=== PATIENT | male | born 1975 | race Caucasian/White ===

== ENCOUNTER 2017-09-07 12:12 | Inpatient (IN) ==
[2017-09-07] MEDS ORDERED: *HR* HYDROmorphone (PF) 1 MG/ML SYRINGE IM ONE (15:27)
[2017-09-07] MEDS ORDERED: Tdap (ADACEL) Vaccine 0.5 ML IM ONE (15:31)
--- NOTE | 2017-09-07 15:31 | Emergency Department Note ---
Disposition Clinical Impression: Abscess of skin or subcutaneous tissue Qualifiers: Site of cutaneous abscess: extremity Site of cutaneous abscess of extremity: upper extremity Laterality: right Qualified Code(s): L02.413 - Cutaneous abscess of right upper limb Disposition: Admitted As Inpatient Condition: Undetermined Referrals: NONE,PCP [Primary Care Provider] - Forms: ED Satisfaction Letter Time of Disposition: 18:43 Skin/Abscess/FB HPI Chief complaint: ED Skin/Abscess/Foreign Body Stated complaint: Right arm cellulitis Time Seen by Provider: 09/07/17 15:09 Source: patient Mode of arrival: ambulatory Limitations: no limitations Nursing Notes Reviewed: Yes Vital Signs Reviewed: Yes HPI Narrative: 42-year-old male with previous history of IV drug abuse that has not used an roughly 1 year arrives to [facility] emergency department complaining of erythema, swelling and pain of the right elbow with flexion/ extension. The patient states started 2 days ago as a small erythematous region is progressively worsening. The patient admits to chills, nausea, weakness. The patient denies any current IV drug abuse. The patient denies any previous history of abscess or cellulitis. Denies any other complaints at this time. Pt Subjective Complaint: insect bite/sting, abscess/boil Onset (ago): day(s) (2) Tetanus Up to Date: no Location: RUE Severity: moderate, severe Severity scale (1-10): 9 Quality: stabbing, aching Consistency: constant, Worsening Improves with: none Worsens with: none Context: none Associated symptoms: Reports: chills, myalgias Treatments prior to arrival: none Allergies Allergy/AdvReac Type Severity Reaction Status Date / Time No Known Allergies Allergy Verified 09/07/17 12:25 All systems ED: reviewed and negative except as stated. Constitutional: Reports: chills. Denies: fever, weakness Cardiovascular: Denies: chest pain Respiratory: Denies: cough, dyspnea, wheezes Gastrointestinal: Reports: nausea. Denies: abdominal pain, vomiting Musculoskeletal: Denies: back pain Integumentary: Reports: lesions. Denies: rash Neurological: Denies: headache, weakness, numbness, vertigo Past Medical History - Past Medical History Attestation: Yes The following information was validated with the patient. Source: patient Medical history: Reports: no medical history Surgical history: Reports: non-contributory Psychiatric history: Reports: no psych history - Social History Smoking Status: Current every day smoker Smokeless Tobacco Status: No Alcohol use: Reports: occasionally Drug use: Reports: opiates (Previous Hx of), marijuana Physical Exam - General Limitations: no limitations General appearance: alert, in no apparent distress - Head Head exam: atraumatic, normocephalic, normal inspection - Eye Eye exam: Present: normal appearance, PERRL, EOMI - ENT ENT exam: normal exam, normal oropharynx, mucous membranes moist - Neck Neck exam: Present: normal inspection, full ROM, trachea midline - Chest Chest inspection: Present: normal inspection, symmetric chest wall rise - Respiratory Respiratory exam: Present: normal lung sounds bilaterally - Cardiovascular Cardiovascular exam: Present: regular rate, normal rhythm, normal heart sounds - Extremities Exam Extremities exam: Present: tenderness (With palpation of right elbow and pain with flexion and extension of right elbow.) - Skin Skin exam: Present: warm, other (Patient has erythema and swelling of right elbow on the anterior to medial aspect with tenderness to palpation.) Course - Consultations Consultation #1: Spoke with Dr. Lorenzana in radiology with regards to previous radiology attending read of CT of right upper extremity. There was question whether or not biceps muscle was involved. After speaking with Dr. Lorenzana he stated that it likely represents edema and that the abscess does not involve the bicep muscle. Time: 18:08 Consultation #2: We spoke with Dr. Espinosa surgery recommended admission to the hospitalist service. She will be consulted. Time: 18:12 Vital Signs Temperature 98.3 F 09/07/17 12:22 Pulse Rate 91 09/07/17 12:22 Respiratory Rate 18 09/07/17 12:22 Blood Pressure 134/78 09/07/17 12:22 O2 Sat by Pulse Oximetry 99 09/07/17 12:22 Temperature 98.3 F 09/07/17 12:22 Pulse Rate 93 09/07/17 17:53 Respiratory Rate 18 09/07/17 17:53 Blood Pressure 119/85 09/07/17 17:53 O2 Sat by Pulse Oximetry 100 09/07/17 17:53 Oxygen Delivery Oxygen Delivery Room Air Skin/Abscess/Foreign Body - MDM Narrative Medical decision making narrative: Patient has right antecubital abscess and cellulitis. The patient was began on vancomycin and cefazolin. CT scan reveals no involvement of the biceps but likely edema that is associated with it. We did a bedside ultrasound that revealed a large amount of vasculature in this region and did not feel comfortable with draining it here in the emergency Department. Given the patient's severity of symptoms and pain with flexion of the elbow, we will admit the patient to the hospitalist with surgery consulted. Patient made aware and agrees to plan. Accepted by Emilie. - Lab Data Lab results reviewed: Yes I reviewed the patient's lab results. Result diagrams: 09/07/17 15:37 09/07/17 15:37 Lab Results 09/07/17 09/07/17 Range/Units 15:37 15:37 WBC 10.9 (4.3-11.1) K/mcL RBC 4.68 (4.19-5.50) M/mcL Hgb 14.2 (12.9-16.9) g/dL Hct 42.9 (37.5-50.1) % MCV 91.7 (83.0-100.0) fL MCH 30.3 (28.0-33.3) pg MCHC 33.1 (31.6-35.5) g/dL RDW 14.3 (11.5-14.5) % Plt Count 267 (140-400) K/mcL MPV 10.1 (9.4-12.4) fL Immature Gran % 0.5 (0-4) % Seg Neutrophils % 76.7 % Lymphocytes % 9.5 % Monocytes % 11.8 % Eosinophils % 1.1 % Basophils % 0.4 % Neutrophils # 8.4 (1.6-8.9) K/mcL Lymphocytes # 1.0 (0.6-4.6) K/mcL Monocytes # 1.3 (0.0-1.3) K/mcL Eosinophils # 0.1 (0.0-0.6) K/mcL Basophils # 0.0 (0.0-0.2) K/mcL Sodium 137 (136-145) mEq/L Potassium 3.4 L (3.5-4.5) mEq/L Chloride 103 (98-109) mEq/L Carbon Dioxide 28 (19-29) mEq/L BUN 11 (8-26) mg/dL Creatinine 0.98 (0.72-1.25) mg/dL Est GFR ( Amer) > 60 (> 60) Est GFR (Non-Af Amer) > 60 (> 60) BUN/Creatinine Ratio 11 (6-26) Glucose 100 H (70-99) mg/dL Calculated Osmolality 283 (280-300) Calcium 9.0 (8.6-10.8) mg/dL - Radiology Data Radiology results reviewed: Yes I reviewed the patient's radiology results. Attestation Statement - Attestation Attestation: I, Stephan Sandoval DO, examined this patient [id number] and my medical decision-making was reviewed with Dr. Anjum Gu, Resident Physician. I agree with the documented findings, disposition and treatment plan as described except to the extent set forth below. Please see my progress notes for details. . 42-year-old male presents emergency room with right upper extremity cellulitis over the before meals of the right elbow. Patient has a history of IV drug abuse but denies any use in greater than a year. There is concerning for some abscess formation as well as cellulitis. Patient is pain with movement of the elbow including flexion and extension. Otherwise she has normal neuromotor function extremity with good pulses. He has full range of motion of the fingers in flexion extension as well as wrist. Elbow is limited range of motion secondary to swelling and irritation shoulder is not affected at this time. Patient has had intermittent chills but denies any fevers nausea vomiting or diarrhea. Patient denies chest pain shortness of breath headache or vision change. Main concern on presentation here is poorly controlled as well as progressive cellulitis with abscesses formation. No physical signs of crepitus or deformity to the extremity. No signs of skin deterioration or necrosis His overlying vascular and tendon areas of the extremity. Patient will be evaluated with labs and CT imaging of the upper extremity. Patient will be provided with antibiotics as deemed appropriate. Otherwise patient is resting comfortable in the bed. See detailed documentation of physical exam, medical intervention, medical decision-making and disposition and resident physician's note.
[2017-09-07 15:52] LABS: Basophils % 0.4 %; Eosinophils # 0.1 K/mcL (0.0-0.6); Eosinophils % 1.1 %; Hematocrit 42.9 % (37.5-50.1); Hemoglobin 14.2 g/dL (12.9-16.9); Immature Granulocytes % 0.5 % (0-4); Lymphocytes % 9.5 %; Mean Corpuscular HGB Conc 33.1 g/dL (31.6-35.5); Mean Corpuscular Hemoglobin 30.3 pg (28.0-33.3); Mean Corpuscular Volume 91.7 fL (83.0-100.0); Mean Platelet Volume 10.1 fL (9.4-12.4); Monocytes # 1.3 K/mcL (0.0-1.3); Monocytes % 11.8 %; Neutrophils # 8.4 K/mcL (1.6-8.9); Platelet Count 267 K/mcL (140-400); Red Blood Count 4.68 M/mcL (4.19-5.50); Red Cell Distribution Width 14.3 % (11.5-14.5); Segmented Neutrophils % 76.7 %
[2017-09-07 16:01] LABS: BUN/Creatinine Ratio 11 (6-26); Blood Urea Nitrogen 11 mg/dL (8-26); Carbon Dioxide 28 mEq/L (19-29); Chloride 103 mEq/L (98-109); Glucose 100 mg/dL (70-99); Osmolality,Calculated 283 (280-300); Potassium 3.4 mEq/L (3.5-4.5); Sodium 137 mEq/L (136-145); eGFR For African Americans > 60 (> 60); eGFR For Non-African Americans > 60 (> 60)
[2017-09-07] MEDS ORDERED: Vancomycin 1,000 MG in D5% in Water 250 ML IVPB ONE (17:08)
[2017-09-07] MEDS ORDERED: ceFAZolin 2,000 MG in D5% in Water 100 ML IVPB ONE (17:28)
[2017-09-07] MEDS ORDERED: *HR* HYDROmorphone 2 MG/ML SYRINGE IVP ONE (17:43)
[2017-09-07] MEDS ORDERED: Naloxone 0.4 MG/ML INJ IVP PRN (19:50)
[2017-09-07] MEDS ORDERED: Acetaminophen 325 MG TABLET PO PRN (19:50)
[2017-09-07] MEDS ORDERED: *HR* HYDROcodone/Acet 5/325 mg TABLET PO PRN (19:50)
[2017-09-07] MEDS ORDERED: Ondansetron 4 MG/2 ML VIAL IVP PRN (19:50)
[2017-09-07] MEDS ORDERED: Vancomycin 1,500 MG in D5% in Water 250 ML IVPB SCH (20:00)
[2017-09-07] MEDS: *HR* HYDROmorphone (PF) 1 MG/ML SYRINGE IVP PRN (22:22)
[2017-09-08] MEDS: Piperacillin/Tazobactam 3.375 GM in D5% in Water (Mini-Bag+) 100 ML IVPB SCH ×3 (00:20→17:37)
[2017-09-08] MEDS: 0.9 % Sodium Chloride 1,000 ML IVC SCH ×2 (00:20→22:39)
--- NOTE | 2017-09-08 00:46 | Internal Med History&Physical ---
Date of Encounter: 09/07/17 Time of Encounter: 22:43 Assessment and Plan (1) Abscess of right upper extremity Current visit: Yes Status: Acute Right upper extremity examined. Pus collection at antecubital fossa seen on CAT scan. General surgeon contacted by ER with see the patient tomorrow and I suspect patient might need I&D. IV vancomycin and Zosyn started. Repeat CBC CMP. IV fluid added (2) Intravenous drug abuse in remission Current visit: Yes Status: Acute Patient has not used IV line in the last 6 months however he uses occasional marijuana (3) Hypokalemia Current visit: Yes Status: Acute Potassium supplemented recheck in the morning Internal Medicine - H&P: HPI Chief complaint: Right upper extremity swelling pain and redness Admitted From: Home Plans for Post Hospital Care: Home History of present illness: Mr. Kraus is a 42 year old male past medical history significant for IV drug abuse presented with 2 day history of right upper extremity pain swelling redness which is worsening. A CT right upper extremity showed pus collection in right antecubital fossa involving the biceps muscle tendon and the surrounding erythema and swelling extending into her arm and forearm. General surgery was consulted who has advised the patient to be admitted to internal medicine and will see the patient is a consult. Consult has been placed. Patient is a started on IV vancomycin and Zosyn. He is in quite a bit of pain there for IV Dilaudid as started beside IV fluid. He denies use of any recent IV drugs. No chest pain or shortness of breath palpitations and headache fever chills dizziness abdominal pain nausea vomiting diarrhea numbness of fingers or any other discomfort otherwise Past Med Surg Social Fam HX - Past Medical History Medical history: no medical history Psychiatric history: no psych history - Past Surgical History Surgical History: non-contributory - Social History Smoking Status: Current every day smoker Packs per day: 0.5 Smokeless Tobacco Status: No Alcohol use: occasionally Drug use: opiates (Previous Hx of), marijuana - Family History Grandmother Living Status: Hx Family Cancer: Yes (Lung CA.) Internal Medicine - H&P: Meds Aspirin/Acetaminophen/Caffeine [Excedrin Migraine Caplet] 1 each PO Q6H PRN 10/14 [History] 3 Allergy/AdvReac Type Severity Reaction Status Date / Time No Known Allergies Allergy Verified 09/07/17 12:25 All Systems PM: A 10-system review of systems was performed and is negative for pertinent findings except as documented above in the HPI. - Constitutional Constitutional: no chills, no fever(s), no night sweats - EENT Eyes: no change in vision, no discharge, no pain, no photophobia Ears: no ear discharge, no ear pain, no tinnitus Nose, mouth and throat: no dysphagia, no nasal discharge, no neck pain, no sore throat - Cardiovascular Cardiovascular ROS IM: no chest pain, no diaphoresis, no dyspnea, no lightheadedness, no palpitations, no syncope - Respiratory Respiratory: no cough, no dyspnea, no wheezing, no excessive phlegm production - Gastrointestinal Gastrointestinal: no abdominal pain, no diarrhea, no hematemesis, no hematochezia, no melena, no nausea, no vomiting - Musculoskeletal Musculoskeletal ROS IM: joint swelling, limited range of motion, stiffness, no numbness, no tingling - Integumentary Integumentary IM: erythema, no rash, no unusual bruising - Neurological Neurological ROS: no confusion, no convulsions, no focal weakness, no numbness, no tingling, no tremor(s) - Hematologic/Lymphatic Hematologic/Lymphatic: no easy bruising - Constitutional Vitals: Temp Pulse Resp BP Pulse Ox 98.9 F 96 15 121/77 100 09/07/17 20:54 09/07/17 20:54 09/07/17 20:54 09/07/17 20:54 09/07/17 20:54 - Head Head exam: Present: atraumatic, normocephalic - Eye Eye exam: Present: PERRL, conjuntiva pink, sclera anicteric Pupils: Present: PERRL - Neck Neck exam general surgery: Present: supple, trachea midline. Absent: lymphadenopathy - Respiratory Respiratory exam: Present: CTAB. Absent: accessory muscle use, rales, rhonchi, wheezes - Cardiovascular Cardiovascular exam: Present: RRR, +S1, +S2. Absent: diastolic murmur, gallop, rubs, systolic murmur - GI/Abdominal GI/Abdominal exam: Present: normal bowel sounds, soft, no peritoneal signs. Absent: distended, tenderness - Extremities Exam Extremities exam: Present: warm, radial pulses palpable and symmetrical. Absent : calf tenderness, cyanotic, pedal edema Additional comments: Right upper extremity including arm and forearm quite swollen. Large tattoo noticed which is old. Very tender to touch. Capillary refill 3 seconds but extremities still warm. Radial pulse palpable. Range of motion limited at the elbow due to pain shoulder and wrist had full range of motion. Neurovascular intact - Neurological Exam Neurological exam: Present: CN II-XII intact, oriented X3, no focal deficits. Absent: pronater drift, facial droop, speech deficit - Skin Skin exam: Present: dry, intact Internal Med - H&P Results - Labs CBC & Chem 7: 09/07/17 15:37 09/07/17 15:37
[2017-09-08] MEDS: *HR* HYDROmorphone (PF) 1 MG/ML SYRINGE IVP PRN ×3 (02:43→08:46)
[2017-09-08 04:39] LABS: Basophils # 0.1 K/mcL (0.0-0.2); Basophils % 0.4 %; Eosinophils # 0.1 K/mcL (0.0-0.6); Eosinophils % 0.8 %; Hematocrit 39.9 % (37.5-50.1); Hemoglobin 13.2 g/dL (12.9-16.9); Immature Granulocytes % 0.3 % (0-4); Lymphocytes # 1.5 K/mcL (0.6-4.6); Lymphocytes % 11.7 %; Mean Corpuscular HGB Conc 33.1 g/dL (31.6-35.5); Mean Corpuscular Hemoglobin 30.3 pg (28.0-33.3); Mean Corpuscular Volume 91.5 fL (83.0-100.0); Mean Platelet Volume 10.7 fL (9.4-12.4); Monocytes # 1.7 K/mcL (0.0-1.3); Monocytes % 13.4 %; Neutrophils # 9.5 K/mcL (1.6-8.9); Platelet Count 234 K/mcL (140-400); Red Blood Count 4.36 M/mcL (4.19-5.50); Red Cell Distribution Width 14.2 % (11.5-14.5); Segmented Neutrophils % 73.4 %
[2017-09-08 04:49] LABS: Alanine Aminotransferase 38 Units/L (0-55); Albumin 2.9 g/dL (3.5-5.0); Albumin/Globulin Ratio 0.9 (1.1-2.2); Alkaline Phosphatase 37 Units/L (38-126); Aspartate Amino Transferase 32 Units/L (5-34); BUN/Creatinine Ratio 8 (6-26); Bilirubin,Total 0.5 mg/dL (0.2-1.2); Blood Urea Nitrogen 9 mg/dL (8-26); C-Reactive Protein 62 mg/L (Less than 5); Calcium 8.6 mg/dL (8.6-10.8); Carbon Dioxide 26 mEq/L (19-29); Chloride 103 mEq/L (98-109); Globulin 3.3 g/dL (2.4-3.5); Glucose 100 mg/dL (70-99); Osmolality,Calculated 283 (280-300); Potassium 3.6 mEq/L (3.5-4.5); Sodium 137 mEq/L (136-145); Total Protein 6.2 g/dL (6.0-8.3); eGFR For African Americans > 60 (> 60); eGFR For Non-African Americans > 60 (> 60)
[2017-09-08] MEDS ORDERED: Lidocaine 1% 20 ML MDV ID ONE (05:15)
[2017-09-08] MEDS: Vancomycin 1,500 MG in D5% in Water 250 ML IVPB SCH ×2 (05:19→17:39)
[2017-09-08] MEDS ORDERED: 0.9 % Sodium Chloride 500 ML IVC ONE (05:57)
[2017-09-08] MEDS ORDERED: 0.9 % Sodium Chloride 500 ML ONE (05:59)
--- NOTE | 2017-09-08 06:04 | General Surgery Consult Note ---
Date of Encounter: 09/08/17 Time of Encounter: 05:00 Assessment and Plan (1) Leukocytosis Current Visit: Yes Status: Acute continue abx cultures obtained trend wbc Qualifiers: Leukocytosis type: unspecified Qualified Code(s): D72.829 - Elevated white blood cell count, unspecified (2) Abscess of right upper extremity Current Visit: Yes Status: Acute discussed with patient I/D of RUE abscess, consent obtained, I/D performed without incident will repeat CT scan RUE since patient has significantly more swelling continue Abx continue prn pain control started ofirmev ice packs to RUE ok (3) History of drug abuse in remission Current Visit: Yes Status: Acute History of Present Illness Consult date: 09/08/17 History of present illness: Patient is a 42 yo male who presents to hospital with a right antecubital fossa abscess. He states he was putting on a shirt Tuesday (4 days ago) when he felt a prick sensation to right arm. No obvious injury. Over the next 2-3 days his arm began and continued to swell which prompted him to present to the ED. He complains of night sweats last night and increased swelling of the right arm. He states it is tight and has decreased ROM at elbow. He had a ct which showed a right antecubital fossa abscess. WBC 10.9 on admission. Patient started on vanco/zosyn per hospitalist. 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 After several OD episodes patient became clean although he states he did have a few relapses. He has been clean for 1-1.5 years. Past Med Surg Social Fam HX - Past Medical History Source: patient Medical history: no medical history, other (history of snorting heroine/clean) Psychiatric history: no psych history - Past Surgical History Surgical History: other (tonsillectomy) - Social History Smoking Status: Current every day smoker Packs per day: 0.5 Smokeless Tobacco Status: No Alcohol use: occasionally Drug use: opiates (Previous Hx of), marijuana, other (snorted heroine) - Family History Grandmother Living Status: Hx Family Cancer: Yes (Lung CA.) Medications and Allergies Aspirin/Acetaminophen/Caffeine [Excedrin Migraine Caplet] 1 each PO Q6H PRN 10/14 [History] 3 Allergy/AdvReac Type Severity Reaction Status Date / Time No Known Allergies Allergy Verified 09/07/17 12:25 Review of Systems All systems PM: reviewed and no additional remarkable complaints except as stated All systems PM: A 10-system review of systems was performed and is negative for pertinent findings except as documented above in the HPI. General Surgery Exam Initial Vital Signs Temp Pulse Resp BP Pulse Ox 98.3 F 91 18 134/78 99 09/07/17 12:22 09/07/17 12:22 09/07/17 12:22 09/07/17 12:22 09/07/17 12:22 - General physical appearance well developed, well nourished, moderate pain - Eyes PERRL, normal ocular movement - ENT normal mucosa, normocephalic - Neck trachea midline - Respiratory normal expansion - Cardiovascular Cardiovascular exam: Present: RRR - Integumentary Integumentary general surgery: Present: other (right upper and forearm edematous , firm, tender, erythematous, at antecubital fossa is a blister, arm is very tender, no subcutaenous emphysema felt) - Neurologic Present: CN 2-12 grossly intact - Musculoskeletal Present: other (decreased ROM right elbow due to swelling/pain) - Psychiatric Psychiatric general surgery: Present: A&Ox3, speech is normal Exam Initial Vital Signs Temp Pulse Resp BP Pulse Ox 98.3 F 91 18 134/78 99 09/07/17 12:22 09/07/17 12:22 09/07/17 12:22 09/07/17 12:22 09/07/17 12:22 Results - Labs 09/08/17 03:56 09/08/17 03:56 Abnormal lab results WBC 13.0 K/mcL (4.3-11.1) H 09/08/17 03:56 Neutrophils # 9.5 K/mcL (1.6-8.9) H 09/08/17 03:56 Monocytes # 1.7 K/mcL (0.0-1.3) H 09/08/17 03:56 Glucose 100 mg/dL (70-99) H 09/08/17 03:56 Alkaline Phosphatase 37 Units/L (38-126) L 09/08/17 03:56 C-Reactive Protein 62 mg/L (Less than 5) H 09/08/17 03:56 Albumin 2.9 g/dL (3.5-5.0) L 09/08/17 03:56 Albumin/Globulin Ratio 0.9 (1.1-2.2) L 09/08/17 03:56 Diabetes panel 09/08/17 Range/Units 03:56 Sodium 137 (136-145) mEq/L Potassium 3.6 (3.5-4.5) mEq/L Chloride 103 (98-109) mEq/L Carbon Dioxide 26 (19-29) mEq/L BUN 9 (8-26) mg/dL Creatinine 1.08 (0.72-1.25) mg/dL Glucose 100 H (70-99) mg/dL Calcium 8.6 (8.6-10.8) mg/dL AST 32 (5-34) Units/L ALT 38 (0-55) Units/L Alkaline Phosphatase 37 L (38-126) Units/L Albumin 2.9 L (3.5-5.0) g/dL Calcium panel 09/08/17 Range/Units 03:56 Calcium 8.6 (8.6-10.8) mg/dL Albumin 2.9 L (3.5-5.0) g/dL Pituitary panel 09/08/17 Range/Units 03:56 Sodium 137 (136-145) mEq/L Potassium 3.6 (3.5-4.5) mEq/L Chloride 103 (98-109) mEq/L Carbon Dioxide 26 (19-29) mEq/L BUN 9 (8-26) mg/dL Creatinine 1.08 (0.72-1.25) mg/dL Glucose 100 H (70-99) mg/dL Calcium 8.6 (8.6-10.8) mg/dL Adrenal panel 09/08/17 Range/Units 03:56 Sodium 137 (136-145) mEq/L Potassium 3.6 (3.5-4.5) mEq/L Chloride 103 (98-109) mEq/L Carbon Dioxide 26 (19-29) mEq/L BUN 9 (8-26) mg/dL Creatinine 1.08 (0.72-1.25) mg/dL Glucose 100 H (70-99) mg/dL Calcium 8.6 (8.6-10.8) mg/dL Total Bilirubin 0.5 (0.2-1.2) mg/dL AST 32 (5-34) Units/L ALT 38 (0-55) Units/L Alkaline Phosphatase 37 L (38-126) Units/L Albumin 2.9 L (3.5-5.0) g/dL All other labs normal. - Imaging Additional studies: CT scan arm personally reviewed Procedures: General Surgery - Abscess I/D Consent obtained: written consent Side (if applicable): right Sedation/analgesia: other (dilaudid) Anesthetic used: lidocaine 1% (8cc) Technique: other (15 blade) Amount of fluid: 10 (purulent foul smelling drainage) Irrigation: Yes (80cc sterile saline) Packing used: .25 inch iodoform Packing size: 1/2" Complications: none Additional comments: consent obtained patient sitting in bed with arm on tray table area prepped with betadine 8cc 1% lidocaine injected subcutaneously around abscess/blister using 15 blade an elliptical incision in proximal antecubital fossa made into subcutaneous tissue, foul smelling purulent drainage resulted loculations in abscess cavity broken up with sterile Qtip irrigated with 80cc sterile saline packed with 1/4" iodoform packing, covered with 4x4 gauze, wrapped with kerlix patient tolerated procedure well 3 cc blood loss Consult Discharge Plan - Plan Referrals: NONE,PCP [Primary Care Provider] -
[2017-09-08] MEDS: *HR* Enoxaparin 40 MG/0.4 ML SYRINGE SQ SCH (06:31)
[2017-09-08 07:35] LABS: Amphetamine Screen,Urine Positive ng/mL (Cutoff=1000); Barbiturate Screen,Urine Negative ng/mL (Cutoff=200); Benzodiazepines Screen,Urine Negative ng/mL (Cutoff=200); Cannabinoid Screen,Urine Negative ng/mL (Cutoff = 50); Cocaine Screen,Urine Negative ng/mL (Cutoff= 300); Opiate Screen,Urine Positive ng/mL (Cutoff=300); Phencyclidine Screen,Urine Negative ng/mL (Cutoff=25)
[2017-09-08] MEDS ORDERED: Acetaminophen IV 1,000 MG/100 ML INFUS..BTL IVPB SCH (09:00)
--- NOTE | 2017-09-08 10:32 | Internal Med Progress Note ---
<Coni Goddard - Last Filed: 09/08/17 13:56> Date of Encounter: 09/08/17 Time of Encounter: 10:30 - Assessment and plan (1) Abscess of right upper extremity Current Visit: Yes Status: Acute Assessment and plan: Patient presented with an abscess on his right upper extremity. CT upper extremity showed abscess in the antecubital fossa with cellulitis of right forearm and upper arm. Abscess may involve the distal biceps muscle Surgery performed I&D today, he tolerated the procedure well He reports improvement in pain -IV Vanc day 1 -IV Zosyn day 1 -blood cultures pending -wound culture pending -pain control with hydrocodone and acetaminophen -ice packs as needed (2) Leukocytosis Current Visit: Yes Status: Acute Assessment and plan: Elevated WBC 13 patient is afebrile -continue vancomycin and Zosyn -continue to monitor CBC -blood cultures pending -wound cultures pending Qualifiers: Leukocytosis type: unspecified Qualified Code(s): D72.829 - Elevated white blood cell count, unspecified (3) History of drug abuse in remission Current Visit: Yes Status: Acute Assessment and plan: Patient has a history of IV drug abuse, heroin. However he reports that he has been clean for 1.5 years. He admits to occasional marijuana use Urine drug screen was positive for opiates and amphetamines. He did receive Dilaudid in the ED - Subjective Interval history: Patient standing beside the bed he reports that his arm feels much better after the incision and drainage of the wound he denies fever, chills, malaise shortness breath, chest pain he has no complaints at this time - Constitutional Vitals: Temp Pulse Resp BP Pulse Ox 98.3 F 108 18 121/69 98 09/08/17 07:00 09/08/17 07:00 09/08/17 07:00 09/08/17 07:00 09/08/17 07:00 Exam: Gen.: Vitals noted. No acute distress. AAOx3 HEENT: oropharynx clear, Normocephalic, atraumatic Cardiac: RRR, no murmur, +S1/S2 Pulmonary: CTA bilaterally, no wheezes, rales or rhonchi, equal chest expansion Abdomen: soft, Bowel sounds noted Extremities: right arm edema in hands and forearm, no erythema, no BLE edema in lower extremities Neuro: A&Ox3, moves all extremities Psych: Appropriate mood and behavior Internal Medicine: Result - Labs CBC & Chem 7: 09/08/17 03:56 09/08/17 03:56 Labs: Short CBC 09/08/17 Range/Units 03:56 WBC 13.0 H (4.3-11.1) K/mcL Hgb 13.2 (12.9-16.9) g/dL Hct 39.9 (37.5-50.1) % Plt Count 234 (140-400) K/mcL Neutrophils # 9.5 H (1.6-8.9) K/mcL BMP 09/08/17 03:56 Sodium 137 Potassium 3.6 Chloride 103 Carbon Dioxide 26 BUN 9 Creatinine 1.08 Glucose 100 H Calcium 8.6 Liver Function 09/08/17 Range/Units 03:56 Total Bilirubin 0.5 (0.2-1.2) mg/dL AST 32 (5-34) Units/L ALT 38 (0-55) Units/L Alkaline Phosphatase 37 L (38-126) Units/L Albumin 2.9 L (3.5-5.0) g/dL - Impressions Impressions Upper Extremity CT 09/08/17 05:39 IMPRESSION: Status post drainage of the antecubital fossa abscess. There is a small amount of hyperdense material at the prior abscess location most consistent with packing material or blood products. Small amount of adjacent air related to the procedure. Suspected underlying myositis. Diffuse subcutaneous edema and fluid most consistent with cellulitis. D/ / 09/08/2017 09:08:04 Raghu Dawson MD / [facility] Interpreting Provider: Raghu Dawson MD Consult Discharge Plan - Plan Referrals: NONE,PCP [Primary Care Provider] - <Nadia Rivera - Last Filed: 09/08/17 14:33> Date of Encounter: 09/08/17 - Constitutional Vitals: Temp Pulse Resp BP Pulse Ox 98.2 F 90 16 123/74 98 09/08/17 10:52 09/08/17 10:52 09/08/17 10:52 09/08/17 10:52 09/08/17 10:52 Internal Medicine: Result - Labs CBC & Chem 7: 09/08/17 03:56 09/08/17 03:56 Labs: Short CBC 09/08/17 Range/Units 03:56 WBC 13.0 H (4.3-11.1) K/mcL Hgb 13.2 (12.9-16.9) g/dL Hct 39.9 (37.5-50.1) % Plt Count 234 (140-400) K/mcL Neutrophils # 9.5 H (1.6-8.9) K/mcL BMP 09/08/17 03:56 Sodium 137 Potassium 3.6 Chloride 103 Carbon Dioxide 26 BUN 9 Creatinine 1.08 Glucose 100 H Calcium 8.6 Liver Function 09/08/17 Range/Units 03:56 Total Bilirubin 0.5 (0.2-1.2) mg/dL AST 32 (5-34) Units/L ALT 38 (0-55) Units/L Alkaline Phosphatase 37 L (38-126) Units/L Albumin 2.9 L (3.5-5.0) g/dL - Impressions Impressions Upper Extremity CT 09/08/17 05:39 IMPRESSION: Status post drainage of the antecubital fossa abscess. There is a small amount of hyperdense material at the prior abscess location most consistent with packing material or blood products. Small amount of adjacent air related to the procedure. Suspected underlying myositis. Diffuse subcutaneous edema and fluid most consistent with cellulitis. D/ / 09/08/2017 09:08:04 Raghu Dawson MD / [facility] Interpreting Provider: Raghu Dawson MD - Attending Attestation I have seen and examined the patient independently. I have discussed with resident Dr Goddard regarding management plan. I agree with the documentation. Patient admitted for right arm abscess and cellulitis. I and D has been done by surgical consult. We will continue IV antibiotics, follow-up blood and wound culture. Patient is generally stable at this point.
[2017-09-08] MEDS: *HR* HYDROcodone/Acet 5/325 mg TABLET PO PRN ×2 (14:25→18:35)
[2017-09-09] MEDS: Piperacillin/Tazobactam 3.375 GM in D5% in Water (Mini-Bag+) 100 ML IVPB SCH ×3 (00:30→16:27)
[2017-09-09] MEDS: *HR* HYDROcodone/Acet 5/325 mg TABLET PO PRN ×2 (03:32→16:26)
[2017-09-09 04:47] LABS: Basophils # 0.1 K/mcL (0.0-0.2); Basophils % 0.5 %; Eosinophils # 0.3 K/mcL (0.0-0.6); Eosinophils % 2.8 %; Hematocrit 36.7 % (37.5-50.1); Hemoglobin 12.2 g/dL (12.9-16.9); Immature Granulocytes % 0.4 % (0-4); Lymphocytes # 1.4 K/mcL (0.6-4.6); Lymphocytes % 13.5 %; Mean Corpuscular HGB Conc 33.2 g/dL (31.6-35.5); Mean Corpuscular Hemoglobin 30.3 pg (28.0-33.3); Mean Corpuscular Volume 91.3 fL (83.0-100.0); Mean Platelet Volume 10.3 fL (9.4-12.4); Monocytes # 1.3 K/mcL (0.0-1.3); Monocytes % 12.3 %; Neutrophils # 7.2 K/mcL (1.6-8.9); Platelet Count 233 K/mcL (140-400); Red Blood Count 4.02 M/mcL (4.19-5.50); Red Cell Distribution Width 14.2 % (11.5-14.5); Segmented Neutrophils % 70.5 %
[2017-09-09 05:03] LABS: BUN/Creatinine Ratio 10 (6-26); Blood Urea Nitrogen 10 mg/dL (8-26); Calcium 8.4 mg/dL (8.6-10.8); Carbon Dioxide 27 mEq/L (19-29); Chloride 105 mEq/L (98-109); Glucose 117 mg/dL (70-99); Osmolality,Calculated 286 (280-300); Potassium 3.7 mEq/L (3.5-4.5); Sodium 138 mEq/L (136-145); eGFR For African Americans > 60 (> 60); eGFR For Non-African Americans > 60 (> 60)
[2017-09-09] MEDS ORDERED: Vancomycin 1,750 MG in D5% in Water 500 ML IVPB SCH (06:00)
[2017-09-09] MEDS: *HR* Enoxaparin 40 MG/0.4 ML SYRINGE SQ SCH (06:12)
[2017-09-09] MEDS: Vancomycin 1,500 MG in D5% in Water 250 ML IVPB SCH ×3 (07:50→23:09)
--- NOTE | 2017-09-09 08:12 | General Surgery Progress Note ---
<Sandra Melton Antonio - Last Filed: 09/09/17 08:09> Date of Encounter: 09/09/17 Time of Encounter: 07:50 - Assessment and Plan (1) Abscess of right upper extremity Current Visit: Yes Status: Acute S/P I&D day #1 IV antibiotics- Zosyn and Vancomycin Cultures- no pathogens isolated (preliminary) Daily wound care Supportive care and pain control- [place] prn and Dilaudid for BTP Repeat am labs Consider ID consult Repeat CT from 09/08/17- Status post drainage of the antecubital fossa abscess. There is a small amount of hyperdense material at the prior abscess location most consistent with packing material or blood products. Small amount of adjacent air related to the procedure. Suspected underlying myositis. Diffuse subcutaneous edema and fluid most consistent with cellulitis. (2) Leukocytosis Current Visit: Yes Status: Resolved Resolved 13>10.2 Continue IV antibiotics- Vancomycin and Zosyn Repeat am labs Qualifiers: Leukocytosis type: unspecified Qualified Code(s): D72.829 - Elevated white blood cell count, unspecified Subjective Patient reports: still having pain (unchanged since drainage yesterday), tolerating a regular diet, voiding w/o difficulty, afebrile Objective Vital Signs - Last 8 Hours Temp Pulse Resp BP Pulse Ox 09/09/17 07:12 98.5 F 09/09/17 05:33 98.3 F 88 17 103/55 96 09/09/17 01:07 99.1 F 95 16 114/69 98 Intake and Output 09/08/17 09/09/17 09/09/17 23:59 07:59 15:59 Intake Total 590 / 590 100 / 100 Output Total 600 / 600 Balance 590 / 590 -500 / -500 Intake: IV Fluids 350 / 350 100 / 100 Zosyn 3.375 GM In Dextrose 5% ( 100 / 100 100 / 100 Minibag+) 100 ML 100 ML @ 25 mls/hr IVPB Q8HR [facility] Rx#: [id number] Vancocin 1,500 MG In Dextrose 5 250 / 250 % 250 ML @ 166.67 mls/hr IVPB Q12H [facility] Rx#:[id number] Vancocin 1,750 MG In Dextrose 5 0 / 0 % 500 ML @ 333.34 mls/hr IVPB Q12H [facility] Rx#:[id number] Oral 240 / 240 Output: Urine 600 / 600 Other: Meal Dinner Percent of Meal Consumed 100% # Voids 1 1 Weight 90.889 kg Patient Weight 09/09/17 23:59 Weight 90.889 kg - General physical appearance well developed, well nourished, no distress, moderate pain - ENT normal mucosa, atraumatic, normocephalic - Neck Neck exam: trachea midline - Respiratory normal expansion, normal respiratory effort, clear to auscultation - Cardiovascular Cardiovascular exam: Present: RRR - Abdomen Abdomen: Present: soft, non tender - Neurologic CN 2-12 grossly intact - Musculoskeletal normal gait, normal posture, other (decreased ROM of right upper extremity) - Psychiatric oriented to time, oriented to person, oriented to place, speech is normal, memory intact - Labs 09/09/17 04:26 09/09/17 04:26 Diabetes panel 09/09/17 Range/Units 04:26 Sodium 138 (136-145) mEq/L Potassium 3.7 (3.5-4.5) mEq/L Chloride 105 (98-109) mEq/L Carbon Dioxide 27 (19-29) mEq/L BUN 10 (8-26) mg/dL Creatinine 1.00 (0.72-1.25) mg/dL Glucose 117 H (70-99) mg/dL Calcium 8.4 L (8.6-10.8) mg/dL Calcium panel 09/09/17 Range/Units 04:26 Calcium 8.4 L (8.6-10.8) mg/dL Pituitary panel 09/09/17 Range/Units 04:26 Sodium 138 (136-145) mEq/L Potassium 3.7 (3.5-4.5) mEq/L Chloride 105 (98-109) mEq/L Carbon Dioxide 27 (19-29) mEq/L BUN 10 (8-26) mg/dL Creatinine 1.00 (0.72-1.25) mg/dL Glucose 117 H (70-99) mg/dL Calcium 8.4 L (8.6-10.8) mg/dL Adrenal panel 09/09/17 Range/Units 04:26 Sodium 138 (136-145) mEq/L Potassium 3.7 (3.5-4.5) mEq/L Chloride 105 (98-109) mEq/L Carbon Dioxide 27 (19-29) mEq/L BUN 10 (8-26) mg/dL Creatinine 1.00 (0.72-1.25) mg/dL Glucose 117 H (70-99) mg/dL Calcium 8.4 L (8.6-10.8) mg/dL - Imaging Additional Studies: Upper Extremity CT 09/08/17 05:39 IMPRESSION: Status post drainage of the antecubital fossa abscess. There is a small amount of hyperdense material at the prior abscess location most consistent with packing material or blood products. Small amount of adjacent air related to the procedure. Suspected underlying myositis. Diffuse subcutaneous edema and fluid most consistent with cellulitis. D/ / 09/08/2017 09:08:04 Raghu Dawson MD / [facility] Interpreting Provider: Raghu Dawson MD Consult Discharge Plan - Plan Referrals: NONE,PCP [Primary Care Provider] - - Attending Attestation For this encounter, I have reviewed the CURRENCY EXAMINER or PA documentation, treatment plan, and medical decision making; and I have had face to face time with this patient. <Roxane Willard - Last Filed: 09/09/17 13:30> Date of Encounter: 09/09/17 Time of Encounter: 11:00 - Assessment and Plan (1) Leukocytosis Current Visit: Yes Status: Resolved resolved but still need to continue abx Qualifiers: Qualified Code(s): D72.829 - Elevated white blood cell count, unspecified (2) Abscess of right upper extremity Current Visit: Yes Status: Acute overall big improvement overnight with edema of RUQ and erythema continue daily dressing changes/packing continue abx (3) History of drug abuse in remission Current Visit: Yes Status: Acute Subjective Patient reports: no new complaints, still having pain, pain is less, tolerating a regular diet, afebrile (improved ROM at elbow, decreased arm swelling) Objective Vital Signs - Last 8 Hours Temp Pulse Resp BP Pulse Ox 09/09/17 11:10 97.8 F 96 14 147/83 98 09/09/17 07:12 98.5 F 09/09/17 05:33 98.3 F 88 17 103/55 96 Intake and Output 09/08/17 09/09/17 09/09/17 23:59 07:59 15:59 Intake Total 590 / 590 100 / 100 240 / 240 Output Total 600 / 600 250 / 250 Balance 590 / 590 -500 / -500 -10 Intake: IV Fluids 350 / 350 100 / 100 Zosyn 3.375 GM In Dextrose 5% ( 100 / 100 100 / 100 Minibag+) 100 ML 100 ML @ 25 mls/hr IVPB Q8HR [facility] Rx#: [id number] Vancocin 1,500 MG In Dextrose 5 250 / 250 % 250 ML @ 166.67 mls/hr IVPB Q12H [facility] Rx#:[id number] Vancocin 1,750 MG In Dextrose 5 0 / 0 % 500 ML @ 333.34 mls/hr IVPB Q12H [facility] Rx#:[id number] Oral 240 / 240 240 / 240 Output: Urine 600 / 600 250 / 250 Other: Meal Dinner Breakfast Percent of Meal Consumed 100% 100% # Voids 1 1 Weight 90.889 kg Patient Weight 09/09/17 23:59 Weight 90.889 kg - General physical appearance well developed, well nourished, no distress - Eyes normal ocular movement - ENT normal mucosa, normocephalic - Neck Neck exam: trachea midline - Respiratory normal expansion, normal respiratory effort - Cardiovascular Cardiovascular exam: Present: RRR - Integumentary other (RUE decreased edema and erythema, wound packed, improved ROMat elbow) - Neurologic CN 2-12 grossly intact - Musculoskeletal normal gait, normal posture - Psychiatric oriented to time, oriented to person, memory intact - Labs 09/09/17 04:26 09/09/17 04:26 Diabetes panel 09/09/17 Range/Units 04:26 Sodium 138 (136-145) mEq/L Potassium 3.7 (3.5-4.5) mEq/L Chloride 105 (98-109) mEq/L Carbon Dioxide 27 (19-29) mEq/L BUN 10 (8-26) mg/dL Creatinine 1.00 (0.72-1.25) mg/dL Glucose 117 H (70-99) mg/dL Calcium 8.4 L (8.6-10.8) mg/dL Calcium panel 09/09/17 Range/Units 04:26 Calcium 8.4 L (8.6-10.8) mg/dL Pituitary panel 09/09/17 Range/Units 04:26 Sodium 138 (136-145) mEq/L Potassium 3.7 (3.5-4.5) mEq/L Chloride 105 (98-109) mEq/L Carbon Dioxide 27 (19-29) mEq/L BUN 10 (8-26) mg/dL Creatinine 1.00 (0.72-1.25) mg/dL Glucose 117 H (70-99) mg/dL Calcium 8.4 L (8.6-10.8) mg/dL Adrenal panel 09/09/17 Range/Units 04:26 Sodium 138 (136-145) mEq/L Potassium 3.7 (3.5-4.5) mEq/L Chloride 105 (98-109) mEq/L Carbon Dioxide 27 (19-29) mEq/L BUN 10 (8-26) mg/dL Creatinine 1.00 (0.72-1.25) mg/dL Glucose 117 H (70-99) mg/dL Calcium 8.4 L (8.6-10.8) mg/dL - Attending Attestation I have personally performed a face to face evaluation on this patient. I have reviewed and agree with the care plan. History and Exam by me shows:
[2017-09-09] MEDS: *HR* HYDROmorphone (PF) 1 MG/ML SYRINGE IVP PRN ×2 (08:19→23:10)
--- NOTE | 2017-09-09 08:55 | Internal Med Progress Note ---
<Coni Goddard - Last Filed: 09/09/17 15:03> Date of Encounter: 09/09/17 Time of Encounter: 08:55 - Assessment and plan (1) Abscess of right upper extremity Current Visit: Yes Status: Acute Assessment and plan: Patient presented with an abscess on his right upper extremity. CT upper extremity showed abscess in the antecubital fossa with cellulitis of right forearm and upper arm. Abscess may involve the distal biceps muscle Surgery performed I&D s/p day 1 He reports improvement in pain, however increase in diffuse edema of right upper extremity and erythema, blister on wrist patient denies fever, chills, shortness breath, chest pain Vanc trough 6.8, sub therapeutic Vanc level -Increase dose of IV Vanc day 2, pharmacy to dose -IV Zosyn day 1 -blood cultures pending -wound culture pending -ID consulted and recommends possibly 4 weeks of antibiotics -monitor renal function and drug toxicity -pain control with hydrocodone and acetaminophen -ice packs as needed (2) Leukocytosis Current Visit: Yes Status: Resolved Assessment and plan: Improving WBC 10.2 patient is afebrile most likely due to abscess and cellulitis -continue vancomycin and Zosyn -continue to monitor CBC -blood cultures preliminary no growth -wound cultures preliminary no growth Qualifiers: Leukocytosis type: unspecified Qualified Code(s): D72.829 - Elevated white blood cell count, unspecified (3) History of drug abuse in remission Current Visit: Yes Status: Acute Assessment and plan: Patient has a history of IV drug abuse, heroin. However he reports that he has been clean for 1.5 years. He admits to occasional marijuana use Urine drug screen was positive for opiates and amphetamines. He did receive Dilaudid in the ED (4) DVT prophylaxis Current Visit: Yes Status: Acute Assessment and plan: Lovenox sq - Subjective Interval history: Patient is sitting up in bed he reports that his arm no longer hurts it is just a little sensitive he reports that his arm is more swollen than yesterday and erythematous he denies fever, chills, malaise shortness breath, chest pain - Constitutional Vitals: Temp Pulse Resp BP Pulse Ox 98.5 F 88 17 103/55 96 09/09/17 07:12 09/09/17 05:33 09/09/17 05:33 09/09/17 05:33 09/09/17 05:33 Exam: Gen.: Vitals noted. No acute distress. AAOx3 HEENT: oropharynx clear, Normocephalic, atraumatic Cardiac: RRR, no murmur, +S1/S2 Pulmonary: CTA bilaterally, no wheezes, rales or rhonchi, equal chest expansion Abdomen: soft, nontender, Bowel sounds noted, no guarding MSK: ROM decreased in right hand and although, Extremities: right upper extremity diffuse edema, erythema, blister on wrist Neuro: A&Ox3, moves all extremities, Psych: Appropriate mood and behavior Internal Medicine: Result - Labs CBC & Chem 7: 09/09/17 04:26 09/09/17 04:26 Labs: Short CBC 09/09/17 Range/Units 04:26 WBC 10.2 (4.3-11.1) K/mcL Hgb 12.2 L (12.9-16.9) g/dL Hct 36.7 L (37.5-50.1) % Plt Count 233 (140-400) K/mcL Neutrophils # 7.2 (1.6-8.9) K/mcL BMP 09/09/17 04:26 Sodium 138 Potassium 3.7 Chloride 105 Carbon Dioxide 27 BUN 10 Creatinine 1.00 Glucose 117 H Calcium 8.4 L - Impressions Impressions Upper Extremity CT 09/08/17 05:39 IMPRESSION: Status post drainage of the antecubital fossa abscess. There is a small amount of hyperdense material at the prior abscess location most consistent with packing material or blood products. Small amount of adjacent air related to the procedure. Suspected underlying myositis. Diffuse subcutaneous edema and fluid most consistent with cellulitis. D/ / 09/08/2017 09:08:04 Raghu Dawson MD / [facility] Interpreting Provider: Raghu Dawson MD Consult Discharge Plan - Plan Referrals: NONE,PCP [Primary Care Provider] - <Nadia Rivera - Last Filed: 09/09/17 17:53> Date of Encounter: 09/09/17 - Constitutional Vitals: Temp Pulse Resp BP Pulse Ox 98.2 F 82 16 129/74 97 09/09/17 15:08 09/09/17 15:08 09/09/17 15:08 09/09/17 15:08 09/09/17 15:08 Internal Medicine: Result - Labs CBC & Chem 7: 09/09/17 04:26 09/09/17 04:26 Labs: Short CBC 09/09/17 Range/Units 04:26 WBC 10.2 (4.3-11.1) K/mcL Hgb 12.2 L (12.9-16.9) g/dL Hct 36.7 L (37.5-50.1) % Plt Count 233 (140-400) K/mcL Neutrophils # 7.2 (1.6-8.9) K/mcL BMP 09/09/17 04:26 Sodium 138 Potassium 3.7 Chloride 105 Carbon Dioxide 27 BUN 10 Creatinine 1.00 Glucose 117 H Calcium 8.4 L - Attending Attestation I have seen and examined the patient independently. I have discussed with resident Dr Goddard regarding the management plan. Agree with the documentation. Patient complaint worsening right arm swelling. No fever. Vital signs stable. Will continue Vanco and Zosyn, adjusted Vanco dose to get better trough level. ID consult appreciated.
[2017-09-09 12:21] LABS: Hepatitis A Antibody IgM Nonreactive (Nonreactive); Hepatitis B Core IgM Nonreactive (Nonreactive); Hepatitis B Surface Antigen Nonreactive (Nonreactive); Hepatitis C Virus Antibody Nonreactive (Nonreactive)
--- NOTE | 2017-09-09 13:33 | Infectious Disease Consult ---
Date of Encounter: 09/09/17 Time of Encounter: 13:07 Assessment and Plan (1) Leukocytosis Status: Resolved Assessment and plan: Likely secondary to right arm cellulitis and abscess. Resolved. Qualifiers: Leukocytosis type: unspecified Qualified Code(s): D72.829 - Elevated white blood cell count, unspecified (2) Abscess of skin or subcutaneous tissue Status: Acute Assessment and plan: Location: Right antecubital fossa. Causative organism unclear. Etiology unclear as well. CT of the RUE showed findings consistent with abscess in the antecubital fossa and cellulitis and myositis. Blood cultures drawn 09/07/17 in the ED are NGTD x 2 sets. General surgery consulted. Status post bedside I & D. Cultures are preliminarily negative. Repeat CT scan does not show anything new. Clinically, the patient does not appear improved. Likely secondary to sub- therapeutic vanc levels. Continue Vancomycin IV. Pharmacy to dose. Goal trough ~15. Vanc trough this morning 6.8. Spoke with April PharmD, regarding dosing. Continue Zosyn 3.375 grams IV Q8H. Duration of treatment depends on the clinical picture, but likely 4 weeks of antibiotics. Monitor renal function and for drug toxicity and dose-adjust antibiotics. Continue wound care per Surgery's recommendations. Qualifiers: Site of cutaneous abscess: extremity Site of cutaneous abscess of extremity : upper extremity Laterality: right Qualified Code(s): L02.413 - Cutaneous abscess of right upper limb (3) Right arm cellulitis Status: Acute Assessment and plan: Causative organism unclear. Etiology unclear. Continue antibiotics as above. (4) History of drug abuse in remission Status: Acute Assessment and plan: Reports that he used to snort heroine, but never did IV drugs. UDS positive for amphetamines. Check HIV and Hepatitis profile. Infectious Disease HPI - Data of Consult Patient: new to practice Consult date: 09/09/17 Requesting Physician: Nadia Rivera MD Primary Care Provider: PCP NONE - Consult Narrative Reason for consult: RUE cellulitis with abscess History of present illness: Mr. Kraus is a 42 year old male with a history of IVDU with last use 1 year ago. The patient presented to the ER with complaints of right upper extremity pain and swelling and was admitted to the hospital 09/07/17 for RUE cellulitis and abscess. We are consulted 09/09/17 for antibiotic recommendations. The patient is a 42 year old male with no major past medical history. The patient states that last he felt a sharp pain in his right elbow when putting on a shirt that felt like something poked or bit him. He did not notice any trauma, but states that an hour later, his elbow began to swell. He reports worsening of the swelling with increased pain over the next few days. Upon arrival to the ED, the patient was afebrile and hemodynamically stable. His WBC was normal. RUE CT showed findings consistent with an abscess and bicep edema. Blood cultures were obtained x 2 sets and the patient was started on Iv Vanc and Zosyn. He was admitted to the hospital for further evaluation. Since admission, the patient's WBC did go up to 13, but was back to normal today. He was evaluated by general surgery and underwent bedside I & D by Dr. Willard 09/08/17. Wound culture is preliminarily negative. The patient has had continued swelling of the arm over the last 24 hours and reports minimal improvement since the I & D. A repeat CT of the RUE post-I & D that did not show any necrotizing fasciitis. The patient remains on Vanc and Zosyn. We've been asked to evaluate and make further recommendations. During my exam today, the patient states that overall he feels well. He denies any fevers, but does report some chills and night sweats. He denies chest pain, shortness of breath, or cough. Denies nausea, vomiting, diarrhea, or constipation. Denies abdominal pain, appetite changes, or urinary complaints. He denies pain in his back or other extremities. He denies any known bites and denies any scrapes, cuts, or sores. He states the pain in his right elbow is unchanged since the I & D and the redness and swelling are a little worse. He denies numbness/tingling or pain with ROM of the hand or wrist. He states the pain is localized to the elbow proximally to the middle of the bicep. The patient reports previous drug use 1 year ago (smoking heroine) and occasional marijuana use. His UDS is positive for amphetamines, but he denies any other drug use. He denies history of hepatitis or HIV. He lives at home with his . They have one dog. He denies recent travel. CC: Nadia Rivera MD Past Med Surg Social Fam HX - Past Medical History Attestation: Yes The following information was validated with the patient. Source: patient, old records reviewed, nursing notes reviewed Medical history: no medical history, other (history of snorting heroine/clean) Psychiatric history: no psych history - Past Surgical History Surgical History: other (tonsillectomy) - Social History Smoking Status: Current every day smoker Packs per day: 0.5 Smokeless Tobacco Status: No Alcohol use: occasionally Drug use: opiates (Previous Hx of), marijuana, other (snorted heroine) Occupational status: unemployed Current living situation: Home - Independent Activity Level: Independent ambulation Recent Out of Country Travel Within the Last 8 Weeks: No Exposure or Possible Exposure to Illness During Travel: No - Family History Grandmother Living Status: Hx Family Cancer: Yes (Lung CA.) Infectious Disease-CN:Meds Aspirin/Acetaminophen/Caffeine [Excedrin Migraine Caplet] 1 each PO Q6H PRN 10/14 [History] 3 Allergy/AdvReac Type Severity Reaction Status Date / Time No Known Allergies Allergy Verified 09/07/17 12:25 All systems: reviewed and no additional remarkable complaints except as stated Exam - Constitutional Vitals: Temp Pulse Resp BP Pulse Ox 97.8 F 96 14 147/83 98 09/09/17 11:10 09/09/17 11:10 09/09/17 11:10 09/09/17 11:10 09/09/17 11:10 General appearance: average body habitus, cooperative, no acute distress - Head Head exam: Present: atraumatic, normal inspection, normocephalic - Eye Eye exam: Present: EOMI, normal appearance, PERRL Pupils: Present: normal accommodation - ENT ENT exam: Present: mucous membranes moist - Neck Neck exam: Present: normal inspection - Respiratory Respiratory exam: Present: CTAB. Absent: rales, respiratory distress, rhonchi, wheezes - Cardiovascular Cardiovascular exam: Present: RRR, +S1, +S2 - GI/Abdominal GI/Abdominal exam: Present: normal bowel sounds, soft. Absent: distended, tenderness - Extremities Exam Extremities exam: Present: tenderness (RUE). Absent: pedal edema Additional comments: RUE swelling noted with mild erythema. ROM limited due to pain and swelling. Right AC I & D site dressing with small amount of serous drainage and packing noted. Swelling extends from fingers to mid-bicep. - Neurological Exam Neurological exam: Present: alert, oriented X3, no focal deficits - Psychiatric Psychiatric exam: Present: normal affect, normal mood - Skin Skin exam: Present: dry, intact, normal color, warm Infectious Disease CN: Results - Labs CBC & Chem 7: 09/09/17 04:26 09/09/17 04:26 Cultures: Cultures 09/08/17 05:40 Wound Culture - Preliminary Right Arm No pathogens isolated. Serology: Serology 09/09/17 Range/Units 08:18 Hepatitis A IgM Ab Nonreactive (Nonreactive) Hep Bs Antigen Nonreactive (Nonreactive) Hep B Core IgM Ab Nonreactive (Nonreactive) Hepatitis C Ab Screen Nonreactive (Nonreactive) Consult Discharge Plan - Plan Referrals: NONE,PCP [Primary Care Provider] - - Attending Attestation I examined this patient and my medical decision-making was reviewed with the Resident Physician. I agree with the documented findings, disposition and treatment plan as described except to the extent set forth below. This is an addendum to original report dictated by Karma Betancourt CNP. Please refer to discuss for full detail. Briefly, patient is a 6-year-old gentleman with history of IV drug use came in with acute sudden onset of pain in the right arm/elbow area. Patient states that he was putting on sure he just felt something sharp and but he couldnt figure out what it was. Patient came in after having worsening edema, erythema and pain. On arrival patient had a CAT scan which showed a large abscess in the right antecubital fossa. The abscess was I&D by Dr. Willard from surgery and was packed. Cultures were sent and patient was started on broad-spectrum antibiotics. Patient states that he hasnt done drugs for over a year although his urine tox screen is positive for opiates and methamphetamines. Patient also had blood cultures done which are so far negative. Patient denies any other complaints and his physical exam is negative for endocarditis stigmata, heart murmur or any other joint effusion. We were asked to evaluate the patients make further recommendations. Location: Right antecubital fossa. Causative organism unclear. Etiology unclear as well. CT of the RUE showed findings consistent with abscess in the antecubital fossa and cellulitis and myositis. Blood cultures drawn 10/11/17 in the ED are NGTD x 2 sets. General surgery consulted. Status post bedside I & D. Cultures are preliminarily negative. Repeat CT scan does not show anything new. Clinically, the patient does not appear improved. Likely secondary to sub- therapeutic vanc levels. Continue Vancomycin IV. Pharmacy to dose. Goal trough ~15. Vanc trough this morning 6.8. Spoke with April, PharmD, regarding dosing. Continue Zosyn 3.375 grams IV Q8H. Well likely de-escalate to vancomycin alone on this cultures show a gram- negative michael that. Duration of treatment is probably 4 weeks because the patient looks like he has myositis. We will continue to follow closely. Monitor labs and for drug toxicity. Check HIV status and hepatitis profile.
[2017-09-09 15:46] LABS: HIV-1&2 Antibody & p24 Ag Nonreactive (Nonreactive)
[2017-09-10] MEDS: Piperacillin/Tazobactam 3.375 GM in D5% in Water (Mini-Bag+) 100 ML IVPB SCH ×3 (00:35→18:12)
[2017-09-10] MEDS: Vancomycin 1,500 MG in D5% in Water 250 ML IVPB SCH ×3 (05:29→15:11)
[2017-09-10] MEDS: *HR* Enoxaparin 40 MG/0.4 ML SYRINGE SQ SCH (05:30)
[2017-09-10 06:02] LABS: Mean Corpuscular HGB Conc 32.9 g/dL (31.6-35.5); Mean Corpuscular Hemoglobin 30.2 pg (28.0-33.3); Mean Platelet Volume 10.4 fL (9.4-12.4); Red Cell Distribution Width 14.1 % (11.5-14.5)
[2017-09-10 06:12] LABS: BUN/Creatinine Ratio 9 (6-26); Blood Urea Nitrogen 9 mg/dL (8-26); Calcium 9.1 mg/dL (8.6-10.8); Carbon Dioxide 28 mEq/L (19-29); Chloride 104 mEq/L (98-109); Glucose 102 mg/dL (70-99); Osmolality,Calculated 289 (280-300); Potassium 4.1 mEq/L (3.5-4.5); Sodium 140 mEq/L (136-145); eGFR For African Americans > 60 (> 60); eGFR For Non-African Americans > 60 (> 60)
[2017-09-10 06:13] LABS: Basophils # 0.1 K/mcL (0.0-0.2); Basophils % 0.6 %; Eosinophils # 0.3 K/mcL (0.0-0.6); Eosinophils % 4.2 %; Hematocrit 39.2 % (37.5-50.1); Hemoglobin 12.9 g/dL (12.9-16.9); Immature Granulocytes % 0.3 % (0-4); Immature Platelets 4.8 % (1.1-6.1); Lymphocytes # 1.3 K/mcL (0.6-4.6); Mean Corpuscular Volume 91.8 fL (83.0-100.0); Monocytes # 0.8 K/mcL (0.0-1.3); Monocytes % 10.6 %; Neutrophils # 5.2 K/mcL (1.6-8.9); Platelet Count 308 K/mcL (140-400); Red Blood Count 4.27 M/mcL (4.19-5.50); Segmented Neutrophils % 67.3 %
[2017-09-10] MEDS: Lactobacillus 1 EACH CAP.SPRINK PO SCH (08:47)
--- NOTE | 2017-09-10 12:12 | General Surgery Progress Note ---
Date of Encounter: 09/10/17 Time of Encounter: 12:10 - Assessment and Plan (1) Abscess of right upper extremity Current Visit: Yes Status: Acute We will continue with daily packing and IV antibiotics. Patient has noted significant improvement in terms of swelling. Continue current regimen for now ; no new recommendations. Subjective Patient reports: no new complaints, other (Patient states that the swelling and redness is significantly decreased. He notes decreased pain in his right upper extremity.) Objective Vital Signs - Last 8 Hours Temp Pulse Resp BP Pulse Ox 09/10/17 11:04 97.6 F 92 14 149/88 97 09/10/17 07:07 97.6 F 81 15 143/76 98 09/10/17 05:00 97.5 F L 83 17 109/72 98 Intake and Output 09/09/17 09/10/17 09/10/17 23:59 07:59 15:59 Intake Total 830 / 830 470 / 470 720 / 720 Output Total 0 / 0 550 / 550 900 / 900 Balance 830 / 830 -80 / -80 -180 / -180 Intake: IV Fluids 350 / 350 350 / 350 Zosyn 3.375 GM In Dextrose 5% ( 100 / 100 100 / 100 Minibag+) 100 ML 100 ML @ 25 mls/hr IVPB Q8HR [facility] Rx#: [id number] Vancocin 1,500 MG In Dextrose 5 250 / 250 250 / 250 % 250 ML @ 166.67 mls/hr IVPB Q8H [facility] Rx#:[id number] Oral 480 / 480 120 / 120 720 / 720 Output: Urine 0 / 0 550 / 550 900 / 900 Other: Meal Dinner Breakfast Percent of Meal Consumed 100% 100% - General physical appearance well developed, well nourished, no distress - Musculoskeletal other (noted wound in right antecubital fossa with mild exudate present on packing and dressing. Erythema is faint in the upper extremity. Edema noted but nonpitting.) - Labs 09/10/17 05:46 09/10/17 05:46 Diabetes panel 09/10/17 Range/Units 05:46 Sodium 140 (136-145) mEq/L Potassium 4.1 (3.5-4.5) mEq/L Chloride 104 (98-109) mEq/L Carbon Dioxide 28 (19-29) mEq/L BUN 9 (8-26) mg/dL Creatinine 0.97 (0.72-1.25) mg/dL Glucose 102 H (70-99) mg/dL Calcium 9.1 (8.6-10.8) mg/dL Calcium panel 09/10/17 Range/Units 05:46 Calcium 9.1 (8.6-10.8) mg/dL Pituitary panel 09/10/17 Range/Units 05:46 Sodium 140 (136-145) mEq/L Potassium 4.1 (3.5-4.5) mEq/L Chloride 104 (98-109) mEq/L Carbon Dioxide 28 (19-29) mEq/L BUN 9 (8-26) mg/dL Creatinine 0.97 (0.72-1.25) mg/dL Glucose 102 H (70-99) mg/dL Calcium 9.1 (8.6-10.8) mg/dL Adrenal panel 09/10/17 Range/Units 05:46 Sodium 140 (136-145) mEq/L Potassium 4.1 (3.5-4.5) mEq/L Chloride 104 (98-109) mEq/L Carbon Dioxide 28 (19-29) mEq/L BUN 9 (8-26) mg/dL Creatinine 0.97 (0.72-1.25) mg/dL Glucose 102 H (70-99) mg/dL Calcium 9.1 (8.6-10.8) mg/dL - VTE Documentation of Mechanical Device: Graduated compression elastic hosiery Consult Discharge Plan - Plan Referrals: NONE,PCP [Primary Care Provider] -
--- NOTE | 2017-09-10 14:27 | Internal Med Progress Note ---
<Kia Russ - Last Filed: 09/10/17 14:20> Date of Encounter: 09/10/17 Time of Encounter: 14:20 - Assessment and plan (1) Abscess of right upper extremity Current Visit: Yes Status: Acute Assessment and plan: Patient presented with an abscess on his right upper extremity. CT upper extremity showed abscess in the antecubital fossa with cellulitis of right forearm and upper arm. Abscess may involve the distal biceps muscle Surgery performed I&D s/p He reports improvement in pain. he is showing clinical improvement. -pharmacy dosing vanc -zosyn -blood and wound cultures no growth. -ID consulted and recommends possibly 4 weeks of antibiotics -monitor renal function and drug toxicity -pain control with hydrocodone and acetaminophen -ice packs as needed (2) Leukocytosis Current Visit: Yes Status: Resolved Assessment and plan: Improving patient is afebrile most likely due to abscess and cellulitis -continue vancomycin and Zosyn -continue to monitor CBC -blood cultures preliminary no growth -wound cultures preliminary no growth Qualifiers: Leukocytosis type: unspecified Qualified Code(s): D72.829 - Elevated white blood cell count, unspecified (3) History of drug abuse in remission Current Visit: Yes Status: Acute Assessment and plan: Patient has a history of IV drug abuse, heroin. However he reports that he has been clean for 1.5 years. He admits to occasional marijuana use Urine drug screen was positive for opiates and amphetamines. (4) DVT prophylaxis Current Visit: Yes Status: Acute Assessment and plan: Lovenox sq - Constitutional Vitals: Temp Pulse Resp BP Pulse Ox 97.6 F 92 14 149/88 97 09/10/17 11:04 09/10/17 11:04 09/10/17 11:04 09/10/17 11:04 09/10/17 11:04 Internal Medicine: Result - Labs CBC & Chem 7: 09/10/17 05:46 09/10/17 05:46 Labs: Short CBC 09/10/17 Range/Units 05:46 WBC 7.8 (4.3-11.1) K/mcL Hgb 12.9 (12.9-16.9) g/dL Hct 39.2 (37.5-50.1) % Plt Count 308 (140-400) K/mcL Neutrophils # 5.2 (1.6-8.9) K/mcL BMP 09/10/17 05:46 Sodium 140 Potassium 4.1 Chloride 104 Carbon Dioxide 28 BUN 9 Creatinine 0.97 Glucose 102 H Calcium 9.1 - VTE Documentation of Mechanical Device: Graduated compression elastic hosiery Consult Discharge Plan - Plan Referrals: NONE,PCP [Primary Care Provider] - <Nadia Rivera - Last Filed: 09/10/17 17:04> Date of Encounter: 09/10/17 - Constitutional Vitals: Temp Pulse Resp BP Pulse Ox 97.4 F L 91 14 134/75 97 09/10/17 14:28 09/10/17 14:28 09/10/17 14:28 09/10/17 14:28 09/10/17 14:28 Internal Medicine: Result - Labs CBC & Chem 7: 09/10/17 05:46 09/10/17 05:46 Labs: Short CBC 09/10/17 Range/Units 05:46 WBC 7.8 (4.3-11.1) K/mcL Hgb 12.9 (12.9-16.9) g/dL Hct 39.2 (37.5-50.1) % Plt Count 308 (140-400) K/mcL Neutrophils # 5.2 (1.6-8.9) K/mcL [facility] 09/10/17 05:46 Sodium 140 Potassium 4.1 Chloride 104 Carbon Dioxide 28 BUN 9 Creatinine 0.97 Glucose 102 H Calcium 9.1 - Attending Attestation I have seen and examined the patient independently. I have discussed with resident Dr. Russ regarding the management plan. Agree with the documentation. Patient has less arm swelling or pain. Continue IV antibiotic for cellulitis. Surgical consul on case for wound care. ID and surgical recommendation highly appreciated.
[2017-09-10] MEDS: *HR* HYDROcodone/Acet 5/325 mg TABLET PO PRN ×2 (15:17→21:27)
[2017-09-11] MEDS: Piperacillin/Tazobactam 3.375 GM in D5% in Water (Mini-Bag+) 100 ML IVPB SCH ×4 (00:01→23:48)
[2017-09-11] MEDS: *HR* Enoxaparin 40 MG/0.4 ML SYRINGE SQ SCH (05:15)
[2017-09-11] MEDS: *HR* HYDROcodone/Acet 5/325 mg TABLET PO PRN ×4 (05:15→21:36)
[2017-09-11] MEDS: Lactobacillus 1 EACH CAP.SPRINK PO SCH (07:52)
[2017-09-11 08:07] LABS: Basophils # 0.1 K/mcL (0.0-0.2); Basophils % 1.1 %; Eosinophils # 0.3 K/mcL (0.0-0.6); Hematocrit 40.4 % (37.5-50.1); Immature Granulocytes % 0.2 % (0-4); Lymphocytes # 1.4 K/mcL (0.6-4.6); Lymphocytes % 21.1 %; Mean Corpuscular HGB Conc 32.2 g/dL (31.6-35.5); Mean Corpuscular Volume 93.1 fL (83.0-100.0); Mean Platelet Volume 10.2 fL (9.4-12.4); Monocytes # 0.7 K/mcL (0.0-1.3); Monocytes % 11.2 %; Platelet Count 321 K/mcL (140-400); Red Blood Count 4.34 M/mcL (4.19-5.50); Red Cell Distribution Width 14.3 % (11.5-14.5); Segmented Neutrophils % 61.4 %
--- NOTE | 2017-09-11 10:35 | Internal Med Progress Note ---
<Kia Russ - Last Filed: 09/11/17 11:17> Date of Encounter: 09/11/17 Time of Encounter: 10:34 - Assessment and plan (1) Abscess of right upper extremity Current Visit: Yes Status: Acute Assessment and plan: Patient presented with an abscess on his right upper extremity. CT upper extremity showed abscess in the antecubital fossa with cellulitis of right forearm and upper arm. Abscess may involve the distal biceps muscle Surgery performed I&D s/p He reports improvement in pain. he is showing clinical improvement. -pharmacy dosing vanc -zosyn -blood and wound cultures no growth. -ID consulted and recommends possibly 4 weeks IV due to myositis seen on CT -monitor renal function and drug toxicity -pain control with hydrocodone and acetaminophen -ice packs as needed possible discharge tomorrow. will try to D/C on [employer] if on formulary. (2) Leukocytosis Current Visit: Yes Status: Resolved Assessment and plan: resolved patient is afebrile most likely due to abscess and cellulitis -continue vancomycin and Zosyn -continue to monitor CBC blood and wound cultures now growth Qualifiers: Leukocytosis type: unspecified Qualified Code(s): D72.829 - Elevated white blood cell count, unspecified (3) History of drug abuse in remission Current Visit: Yes Status: Acute Assessment and plan: Patient has a history of IV drug abuse, heroin. However he reports that he has been clean for 1.5 years. He admits to occasional marijuana use Urine drug screen was positive for opiates and amphetamines. (4) DVT prophylaxis Current Visit: Yes Status: Acute Assessment and plan: Lovenox sq - Subjective Interval history: 42M evaluated at bedside. he denies nausea, vomiting, diarrhea, fever, chills, chest pain, shortness of breath. he denies any further problems today. - Constitutional Vitals: Temp Pulse Resp BP Pulse Ox 97.4 F L 73 14 152/83 99 09/11/17 07:13 09/11/17 07:13 09/11/17 07:13 09/11/17 07:13 09/11/17 07:13 General appearance: Present: A&O X 3, pleasant, no acute distress, answers questions appropriately - Head Head exam: Present: atraumatic, normocephalic - Neck Neck exam general surgery: Present: supple, trachea midline - Respiratory Respiratory exam: Present: CTAB - Cardiovascular Cardiovascular exam: Present: RRR, +S1, +S2 - GI/Abdominal GI/Abdominal exam: Present: normal bowel sounds, soft. Absent: distended, tenderness - Extremities Exam Additional comments: tattoos present on bilateral upper extremity. right arm abscess is wrapped in dressing. tenderness and swelling have significantly decreased. - Neurological Exam Neurological exam: Present: alert, oriented X3, no focal deficits - Psychiatric Psychiatric exam: Present: normal affect, normal mood Internal Medicine: Result - Labs CBC & Chem 7: 09/11/17 07:24 09/10/17 05:46 Labs: Short CBC 09/11/17 Range/Units 07:24 WBC 6.5 (4.3-11.1) K/mcL Hgb 13.0 (12.9-16.9) g/dL Hct 40.4 (37.5-50.1) % Plt Count 321 (140-400) K/mcL Neutrophils # 4.0 (1.6-8.9) K/mcL - VTE Documentation of Mechanical Device: Graduated compression elastic hosiery Consult Discharge Plan - Plan Referrals: NONE,PCP [Primary Care Provider] - <Nadia Rivera - Last Filed: 09/11/17 15:46> Date of Encounter: 09/11/17 - Constitutional Vitals: Temp Pulse Resp BP Pulse Ox 97.9 F 86 14 142/72 98 09/11/17 15:03 09/11/17 15:03 09/11/17 15:03 09/11/17 15:03 09/11/17 15:03 Internal Medicine: Result - Labs CBC & Chem 7: 09/11/17 07:24 09/10/17 05:46 Labs: Short CBC 09/11/17 Range/Units 07:24 WBC 6.5 (4.3-11.1) K/mcL Hgb 13.0 (12.9-16.9) g/dL Hct 40.4 (37.5-50.1) % Plt Count 321 (140-400) K/mcL Neutrophils # 4.0 (1.6-8.9) K/mcL - Attending Attestation I have seen and examined patient independently. I have discussed with resident DR Russ regarding the management plan. Agree with the documentation. Patient has no fever. Right arm swelling and pain subsided significantly. Vitals are stable. Contacted ID consultation today. Concern for myositis. Recommend continue IV antibiotic for today. ID Will reevaluate patient tomorrow and decide further plan.
[2017-09-11] MEDS: Vancomycin 1,500 MG in D5% in Water 250 ML IVPB SCH ×2 (12:17→23:49)
--- NOTE | 2017-09-11 12:22 | General Surgery Progress Note ---
Date of Encounter: 09/11/17 Time of Encounter: 12:20 - Assessment and Plan (1) Abscess of right upper extremity Current Visit: Yes Status: Acute At this stage it would be appropriate to transition to oral antibiotics. Patient is aware of the need for daily dressing changes and packing change. From a surgical standpoint it would be appropriate to consider discharge home. If patient is discharged home today we will make certain he is followed up in the office within 1-2 weeks. Subjective Patient reports: no new complaints, other (Noted continued improvement in mobility of RUE.) Objective Vital Signs - Last 8 Hours Temp Pulse Resp BP Pulse Ox 09/11/17 10:48 97.4 F L 87 14 143/88 98 09/11/17 07:13 97.4 F L 73 14 152/83 99 09/11/17 04:52 97.7 F 87 18 136/82 97 Intake and Output 09/10/17 09/11/17 09/11/17 23:59 07:59 15:59 Intake Total 220 / 220 220 / 220 240 / 240 Output Total 0 / 0 0 / 0 750 / 750 Balance 220 / 220 220 / 220 -510 / -510 Intake: IV Fluids 100 / 100 100 / 100 Zosyn 3.375 GM In Dextrose 5% ( 100 / 100 100 / 100 Minibag+) 100 ML 100 ML @ 25 mls/hr IVPB Q8HR [facility] Rx#: [id number] Oral 120 / 120 120 / 120 240 / 240 Output: Urine 0 / 0 0 / 0 750 / 750 Other: Meal Dinner Percent of Meal Consumed 100% # Voids 2 Weight 90.1 kg Patient Weight 09/11/17 23:59 Weight 90.1 kg - General physical appearance well nourished, no distress - Musculoskeletal other (Right upper extremity erythema has continued to decrease. Dressing in place.) - Labs 09/11/17 07:24 09/10/17 05:46 - VTE Documentation of Mechanical Device: Graduated compression elastic hosiery Consult Discharge Plan - Plan Referrals: NONE,PCP [Primary Care Provider] -
[2017-09-12] MEDS ORDERED: Aminoglycoside Consult 1 EACH MC ONE (00:14)
[2017-09-12 02:49] LABS: Basophils # 0.1 K/mcL (0.0-0.2); Basophils % 1.1 %; Eosinophils # 0.4 K/mcL (0.0-0.6); Eosinophils % 5.9 %; Hematocrit 39.2 % (37.5-50.1); Hemoglobin 12.7 g/dL (12.9-16.9); Immature Granulocytes % 0.3 % (0-4); Lymphocytes # 1.7 K/mcL (0.6-4.6); Lymphocytes % 28.4 %; Mean Corpuscular HGB Conc 32.4 g/dL (31.6-35.5); Mean Corpuscular Hemoglobin 29.9 pg (28.0-33.3); Mean Corpuscular Volume 92.2 fL (83.0-100.0); Mean Platelet Volume 9.9 fL (9.4-12.4); Monocytes # 0.7 K/mcL (0.0-1.3); Monocytes % 11.9 %; Neutrophils # 3.2 K/mcL (1.6-8.9); Platelet Count 325 K/mcL (140-400); Red Blood Count 4.25 M/mcL (4.19-5.50); Red Cell Distribution Width 14.2 % (11.5-14.5); Segmented Neutrophils % 52.4 %
[2017-09-12 03:06] LABS: BUN/Creatinine Ratio 14 (6-26); Blood Urea Nitrogen 16 mg/dL (8-26); Calcium 9.1 mg/dL (8.6-10.8); Carbon Dioxide 27 mEq/L (19-29); Chloride 104 mEq/L (98-109); Glucose 99 mg/dL (70-99); Osmolality,Calculated 289 (280-300); Potassium 3.9 mEq/L (3.5-4.5); Sodium 139 mEq/L (136-145); eGFR For African Americans > 60 (> 60); eGFR For Non-African Americans > 60 (> 60)
[2017-09-12 03:15] LABS: Reactive Lymphocytes Present (Not Present)
[2017-09-12 03:16] LABS: Platelet Estimate Normal (Normal)
[2017-09-12] MEDS: *HR* Enoxaparin 40 MG/0.4 ML SYRINGE SQ SCH (04:57)
[2017-09-12] MEDS: *HR* HYDROcodone/Acet 5/325 mg TABLET PO PRN ×3 (04:58→22:32)
--- NOTE | 2017-09-12 09:10 | Discharge Summary ---
<Coni Goddard - Last Filed: 09/12/17 16:19> Date of Encounter: 09/12/17 Time of Encounter: 08:30 - Discharge Diagnosis (1) Abscess of right upper extremity Priority: Primary Status: Acute (2) Leukocytosis Priority: Secondary Status: Resolved Qualifiers: Leukocytosis type: unspecified Qualified Code(s): D72.829 - Elevated white blood cell count, unspecified (3) History of drug abuse in remission Priority: Secondary Status: Acute (4) DVT prophylaxis Priority: Secondary Status: Acute - Discharge Medications Home Medications: Aspirin/Acetaminophen/Caffeine [Excedrin Migraine Caplet] 1 each PO Q6H PRN 10/14 [History] Allergies/Adverse Reactions: 3 Allergy/AdvReac Type Severity Reaction Status Date / Time No Known Allergies Allergy Verified 09/07/17 12:25 Date of admission: 09/07/17 19:50 Primary care physician: PCP NONE Consults: 09/09/17 09:29 Consult to Infectious Diseases [CONS] Routine Consulting Provider: Infectious Disease [place] Reason for Consult: RUE abscess/cellulitis Time Notified: 09:29 Call Completed: Yes Discharging clinician: Nadia Rivera - Patient Status Disposition: Home, Self-Care Condition: Good Functional capacity at discharge: independent ambulation Overall status at discharge: patient is progressing back to baseline - Discharge Instructions Follow Up With: Emmett Rothman MD [Partnered Physician] - Karma Betancourt CNP [Advanced Practice Nurse] - Sandra Melton CNP [Advanced Practice Nurse] - 09/19/17 9:00 am Additional Instructions: Patient is to return to the infectious disease office for antibiotic tomorrow patient is to follow up with surgery outpatient within one to 2 weeks Patient is to follow up with PCP in about a week or 2 return hospital should do develop fever, chills, worsening arm pain. - Diet and Activity Activity: resume usual activities as tolerated Diet: regular diet Hospital course: Mr. Kraus is a 42 year old male past medical history significant for IV drug abuse presented with 2 day history of right upper extremity pain swelling redness which is worsening. A CT right upper extremity showed pus collection in right antecubital fossa involving the biceps muscle tendon and the surrounding erythema and swelling extending into her arm and forearm. General surgery was consulted who has advised the patient to be admitted to internal medicine and will be seen as a consult. Patient was started on IV vancomycin and Zosyn. He is in quite a bit of pain there for IV Dilaudid as started beside IV fluid. He denies use of any recent IV drugs. No chest pain or shortness of breath palpitations and headache fever chills dizziness abdominal pain nausea vomiting diarrhea numbness of fingers or any other discomfort otherwise. Surgery saw the patient inpatient and performed incision and drainage of right upper extremity abscess. Blood cultures among cultures were ordered. Infectious disease was consulted and recommended 4 weeks of antibiotics. The patient continued to improve and denied fever, chills. Blood and wound cultures showed no growth. Due to myositis infectious disease recommended the patient be started on dalvance. Due to insurance and billing purposes with prior authorization the patient will be discharged this evening and tomorrow the patient will return to the office of infectious disease and will then get his prescription for dalvance. The patient was informed of the treatment and plan and all questions were answered. The patient is alert and oriented times 3 with full capacity. The patient was instructed to follow-up with his PCP in about a week or 2. He is also to follow up with surgery within one to 2 weeks. He is to return to the hospital should he develop fever, chills , worsening arm pain, chest pain, shortness of breath. - Time Spent with Patient Total time spent providing and/or coordinating discharge services: - Constitutional Vitals: Temp Pulse Resp BP Pulse Ox 97.8 F 82 14 166/77 97 09/12/17 05:22 09/12/17 05:22 09/12/17 05:22 09/12/17 05:22 09/12/17 05:22 General appearance: Present: A&O X 3, pleasant, no acute distress, answers questions appropriately Exam: Gen.: Vitals noted. No acute distress. AAOx3 HEENT: oropharynx clear, Normocephalic, atraumatic Cardiac: RRR, no murmur, +S1/S2 Pulmonary: CTA bilaterally, no wheezes, rales or rhonchi, equal chest expansion Abdomen: soft, nontender, Bowel sounds noted, no guarding MSK: ROM intact, no joint swelling noted Extremities: no edema in upper extremities bilaterally, erythema of medial side of arm. Minimal tenderness to right arm. nontender calf, no cyanosis or clubbing Neuro: A&Ox3, moves all extremities Psych: Appropriate mood and behavior - VTE Documentation of Mechanical Device: Graduated compression elastic hosiery <Nadia Rivera - Last Filed: 09/12/17 16:54> Date of Encounter: 09/12/17 Date of admission: 09/07/17 19:50 Primary care physician: PCP NONE Consults: 09/09/17 09:29 Consult to Infectious Diseases [CONS] Routine Consulting Provider: Infectious Disease [place] Reason for Consult: RUE abscess/cellulitis Time Notified: 09:29 Call Completed: Yes 09/12/17 13:58 Consult to Mink Slicer [CONS] Routine Reason for SW Consult: self pay, history of IVDU, will need IV ABX for 28 days Hospital course: Mr. Kraus is a 42 year old male - Time Spent with Patient Total time spent providing and/or coordinating discharge services: - Constitutional Vitals: Temp Pulse Resp BP Pulse Ox 97.7 F 86 18 123/79 97 09/12/17 14:57 09/12/17 14:57 09/12/17 14:57 09/12/17 14:57 09/12/17 14:57 - Attending Attestation I saw and examined the patient independently. I have discussed with resident Dr Goddard regarding the management plan. Agree with the documentation. Patient has significantly improved clinically. Minimal pain on right arm. Swelling almost resolved. However, ID recommend dalvance 1 dose for his myositis. Patient will discharge home today and have his Dalvance infusion in ID office tomorrow. Patient has stable vital signs, stable to discharge home. Further follow-up arranged as described above.
[2017-09-12] MEDS: Piperacillin/Tazobactam 3.375 GM in D5% in Water (Mini-Bag+) 100 ML IVPB SCH ×2 (09:31→17:57)
[2017-09-12] MEDS: Lactobacillus 1 EACH CAP.SPRINK PO SCH (09:33)
[2017-09-12] MEDS: Vancomycin 1,500 MG in D5% in Water 250 ML IVPB SCH (13:24)
--- NOTE | 2017-09-12 16:50 | Infectious Disease Progress No ---
Date of Encounter: 09/12/17 Time of Encounter: 16:48 - Assessment and Plan (1) Leukocytosis Status: Resolved Likely secondary to right arm cellulitis and abscess. Resolved. Qualifiers: Leukocytosis type: unspecified Qualified Code(s): D72.829 - Elevated white blood cell count, unspecified (2) Abscess of skin or subcutaneous tissue Status: Acute Location: Right antecubital fossa. Causative organism unclear. Etiology unclear as well. CT of the RUE showed findings consistent with abscess in the antecubital fossa and cellulitis and myositis. Blood cultures drawn 09/07/17 in the ED are NGTD x 2 sets. General surgery consulted. Status post bedside I & D. Cultures are negative. Repeat CT scan does not show anything new. Clinically, the patient is markedly improved. Continue Vancomycin IV. Pharmacy to dose. Goal trough ~15. The patient will receive a dose of IV Vanc tonight at 2200 and will then be discharged. We will plan on starting Dalvance tomorrow afternoon. Once we have receive the medication, we will make arrangements for the patient to come to the outpatient infusion center and get the one-time 1500mg dose. I am working with pharmacy and Dalvance to coordinate this and we will call the patient in the morning to set this all up. Continue Zosyn 3.375 grams IV Q8H while here, then discontinue. Duration of treatment depends on the clinical picture, but likely 4 weeks of antibiotics. The Dalvance will stay at therapeutic levels for 14 days and we will then switch the patient to oral antibiotics. Monitor renal function and for drug toxicity and dose-adjust antibiotics. Continue wound care per Surgery's recommendations. Follow up with ID in two weeks. Qualifiers: Site of cutaneous abscess: extremity Site of cutaneous abscess of extremity : upper extremity Laterality: right Qualified Code(s): L02.413 - Cutaneous abscess of right upper limb (3) Right arm cellulitis Status: Acute Causative organism unclear. Etiology unclear. Continue antibiotics as above. (4) History of drug abuse in remission Status: Acute Reports that he used to snort heroine, but never did IV drugs. UDS positive for amphetamines. HIV and Hepatitis profile are negative. - Subjective Interval history: Patient seen and examined. Weekend notes reviewed. No acute events noted. Patient resting quietly in bed. States his arm is much better. Denies fevers, chills, or rigors. Denies chest pain, shortness of breath, or cough. Denies nausea, vomiting, or diarrhea. Denies abdominal pain or urinary complaints. States his appetite is good. denies oral thrush or new skin lesions. Infect Dis PN-Objective Data - Labs CBC & Chem 7: 09/12/17 02:34 09/12/17 02:34 Labs: Laboratory Results - last 24 hr 09/12/17 09/12/17 02:34 02:34 WBC 6.1 RBC 4.25 Hgb 12.7 L Hct 39.2 MCV 92.2 MCH 29.9 MCHC 32.4 RDW 14.2 Plt Count 325 MPV 9.9 Immature Gran % 0.3 Seg Neutrophils % 52.4 Lymphocytes % 28.4 Monocytes % 11.9 Eosinophils % 5.9 Basophils % 1.1 Neutrophils # 3.2 Lymphocytes # 1.7 Monocytes # 0.7 Eosinophils # 0.4 Basophils # 0.1 Reactive Lymphocytes Present A Platelet Estimate Normal Sodium 139 Potassium 3.9 Chloride 104 Carbon Dioxide 27 BUN 16 Creatinine 1.17 Est GFR ( Amer) > 60 Est GFR (Non-Af Amer) > 60 BUN/Creatinine Ratio 14 Glucose 99 Calculated Osmolality 289 Calcium 9.1 Cultures: Cultures 09/08/17 05:40 Anaerobic Culture - Preliminary Right Arm At this time, no anaerobic growth is present. The culture will be finalized after 5 days of incubation. 09/08/17 05:40 Wound Culture - Final Right Arm No pathogens isolated. Serology 09/09/17 Range/Units 08:18 Hepatitis A IgM Ab Nonreactive (Nonreactive) Hep Bs Antigen Nonreactive (Nonreactive) Hep B Core IgM Ab Nonreactive (Nonreactive) Hepatitis C Ab Screen Nonreactive (Nonreactive) HIV Ag/Ab Combo Qual Nonreactive (Nonreactive) Exam - Constitutional Vitals: Temp Pulse Resp BP Pulse Ox 97.7 F 86 18 123/79 97 09/12/17 14:57 09/12/17 14:57 09/12/17 14:57 09/12/17 14:57 09/12/17 14:57 General appearance: average body habitus, cooperative, no acute distress - Head Head exam: Present: atraumatic, normal inspection, normocephalic - Eye Eye exam: Present: EOMI, normal appearance, PERRL Pupils: Present: normal accommodation - ENT ENT exam: Present: mucous membranes moist - Neck Neck exam: Present: normal inspection - Respiratory Respiratory exam: Present: CTAB. Absent: rales, respiratory distress, rhonchi, wheezes - Cardiovascular Cardiovascular exam: Present: RRR, +S1, +S2 - GI/Abdominal GI/Abdominal exam: Present: normal bowel sounds, soft. Absent: distended, tenderness - Extremities Exam Extremities exam: Present: tenderness (RUE). Absent: joint swelling, pedal edema Additional comments: RUe swelling improved. No erythema. I & D site with packing noted with minimal serous drainage. ROM of the elbow decreased due to pain, but improved from previous assessment. - Neurological Exam Neurological exam: Present: alert, oriented X3, no focal deficits - Psychiatric Psychiatric exam: Present: normal affect, normal mood - Skin Skin exam: Present: dry, intact, normal color, warm - VTE Documentation of Mechanical Device: Graduated compression elastic hosiery Consult Discharge Plan - Plan Instructions: Abscess (GEN) Additional Instructions: Patient is to return to the infectious disease office for antibiotic tomorrow patient is to follow up with surgery outpatient within one to 2 weeks Patient is to follow up with PCP in about a week or 2 return hospital should do develop fever, chills, worsening arm pain. Referrals: Karma Betancourt CNP [Advanced Practice Nurse] - Sandra Melton CNP [Advanced Practice Nurse] - 09/19/17 9:00 am - Attending Attestation I examined this patient and my medical decision-making was reviewed with the Resident Physician. I agree with the documented findings, disposition and treatment plan as described except to the extent set forth below.
[2017-09-12] MEDS ORDERED: Vancomycin 1,500 MG in D5% in Water 250 ML IVPB SCH (22:00)
[2017-09-13 00:39] VITALS: BP 133/76
== END 2017-09-13 00:15 | disposition home or self-care (01) | DRG 364 ==
LOC: 3ANU 12:12 → EMEROO 12:12 → 3ANU 19:52
PROVIDERS: ADMIT Nurse Practitioner Family; ATTEND Internal Medicine